=== PATIENT | male | born 1960 | race Caucasian/White ===

== ENCOUNTER 2017-11-20 07:30 | Day surgery (SDC) | payer OTHER ==
[2017-11-16 10:42] VITALS: BMI 23.7
[2017-11-20] MEDS ORDERED: LIDOCAINE HCL/PF 2% SDV 5ML VIAL ONE (07:34)
[2017-11-20] MEDS ORDERED: PROPOFOL 20 ML ONE ×2 (07:34)
[2017-11-20 08:53] VITALS: PULSE 85
[2017-11-20 09:16] VITALS: BP 107/65; TEMP 98.1
--- NOTE | 2017-11-21 16:08 | PATH ---
Surgical Pathology Report Patient Name: DUSTIN RANDOLPH [facility]. Rec. #: [id number] /Age/Gender: 1960 (Age: 57) / M Account: [id number] Location: [facility]-ENDOSCOPY Taken: 11/20/2017 Received: 11/20/2017 Reported: 11/21/2017 Physicians: Joe Ellis M.D. Specimen(s) Received A: BX CECUM B: BX RIGHT COLON C: BX TRANSVERSE COLON D: BX LEFT COLON E: BX SIGMOID F: BX DISTAL SIGMOID G: BX RECTUM Clinical History Preoperative diagnosis: Ulcerative colitis Postoperative diagnosis: Rule out dysplasia Final Diagnosis A. CECUM, BIOPSY : COLONIC MUCOSA WITH NO PATHOLOGIC FINDINGS. NEGATIVE FOR COLITIS AND DYSPLASIA. B. RIGHT COLON, BIOPSY: COLONIC MUCOSA WITH NO PATHOLOGIC FINDINGS. NEGATIVE FOR COLITIS AND DYSPLASIA. C. TRANSVERSE COLON, BIOPSY: COLONIC MUCOSA WITH NO PATHOLOGIC FINDINGS. NEGATIVE FOR COLITIS AND DYSPLASIA. D. LEFT COLON, BIOPSY: COLONIC MUCOSA WITH NO PATHOLOGIC FINDINGS. NEGATIVE FOR COLITIS AND DYSPLASIA. E. SIGMOID, BIOPSY: COLONIC MUCOSA WITH NO PATHOLOGIC FINDINGS. NEGATIVE FOR COLITIS AND DYSPLASIA. F. DISTAL SIGMOID, BIOPSY: MODERATE CHRONIC COLITIS, MILDLY ACTIVE. NEGATIVE FOR DYSPLASIA. G. RECTUM, BIOPSY: MODERATE CHRONIC ACTIVE PROCTITIS. NEGATIVE FOR DYSPLASIA. Electronically Signed Shira Nelson M.D. Gross Description A. Received in formalin, labeled "cecum" are 4 patel, irregular portions of soft tissue ranging from 0.1-0.3 cm. in greatest dimension. The specimens are submitted in toto in one cassette. B. Received in formalin, labeled "right colon" are 4 patel, irregular portions of soft tissue averaging 0.2 cm. in greatest dimension. The specimens are submitted in toto in one cassette. C. Received in formalin, labeled "transverse" are 4 patel, irregular portions of soft tissue ranging from 0.2-0.5 cm. in greatest dimension. The specimens are submitted in toto in one cassette. D. Received in formalin, labeled "left colon" are 4 patel, irregular portions of soft tissue ranging from 0.1-0.4 cm. in greatest dimension. The specimens are submitted in toto in one cassette. E. Received in formalin, labeled "sigmoid" are 4 patel, irregular portions of soft tissue ranging from 0.2-0.7 cm. in greatest dimension. The specimens are submitted in toto in one cassette. F. Received in formalin, labeled "distal sigmoid" are 4 patel, irregular portions of soft tissue ranging from 0.2-0.3 cm. in greatest dimension. The specimens are submitted in toto in one cassette. G. Received in formalin, labeled "rectum" are 2 patel, irregular portions of soft tissue measuring 0.2 and 0.3 cm. in greatest dimension. The specimens are submitted in toto in one cassette. 11/20/2017 [facility]11/20/2017
== END 2017-11-20 09:35 | disposition home or self-care (01) ==
LOC: FASU-ENDO 07:30
PROVIDERS: ATTEND Internal Medicine Gastroenterology
PROC: 0DBN8ZX Excision of Sigmoid Colon, Via Natural or Artificial Opening Endoscopic, Diagnostic (ICD-10-PCS; 2017-11-20)
PROC: 0DBP8ZX Excision of Rectum, Via Natural or Artificial Opening Endoscopic, Diagnostic (ICD-10-PCS; 2017-11-20)
PROC: 0DBM8ZX Excision of Descending Colon, Via Natural or Artificial Opening Endoscopic, Diagnostic (ICD-10-PCS; 2017-11-20)
PROC: 0DBH8ZX Excision of Cecum, Via Natural or Artificial Opening Endoscopic, Diagnostic (ICD-10-PCS; 2017-11-20)
PROC: 0DBK8ZX Excision of Ascending Colon, Via Natural or Artificial Opening Endoscopic, Diagnostic (ICD-10-PCS; principal; 2017-11-20 08:16)
PROC: 0DBL8ZX Excision of Transverse Colon, Via Natural or Artificial Opening Endoscopic, Diagnostic (ICD-10-PCS; 2017-11-20 08:16)
DX: Z09 Encounter for follow-up examination after completed treatment for conditions other than malignant neoplasm (principal); Z87.19 Personal history of other diseases of the digestive system; K57.30 Diverticulosis of large intestine without perforation or abscess without bleeding
CPT/HCPCS: 88305-TC

== ENCOUNTER 2018-11-28 11:39 | Inpatient (IN) | payer BC, OTHER ==
[2018-11-28] MEDS ORDERED: methylPREDNISolone NA SUCC 40 MG/1 ML VIAL IVPUSH ONE (11:42)
[2018-11-28] MEDS ORDERED: SODIUM CHLORIDE 1,000 ML IV STA ×2 (11:43→13:05)
[2018-11-28 11:57] VITALS: BMI 22.5
[2018-11-28] MEDS ORDERED: methylPREDNISolone NA SUCC 40 MG/1 ML VIAL ONE (12:20)
[2018-11-28 12:42] LABS: BASO % 0.1 % (0-2.0); EOS % 0.7 % (0-4.5); HEMATOCRIT 38.1 % (35.4-49); HEMOGLOBIN 12.2 GM/dl (11.7-16.9); LYMPH % 11.6 % (8-40); MCH 25.8 pg (25.7-33.7); MCHC 32.1 g/dl (32.0-35.9); MEAN CELL VOLUME 80.6 fl (80-96); MEAN PLT VOLUME 6.6 fl (7.5-11.1); MONO % 10.8 % (3.8-10.2); NEUT % 76.8 % (42.8-82.8); PLATELET COUNT 627 K/MM3 (134-434); RBC 4.73 M/mm3 (4.00-5.60); RDW 13.1 % (11.9-15.9); WHITE BLOOD COUNT 12.6 K/mm3 (4.0-10.8)
[2018-11-28 13:00] LABS: MAGNESIUM 1.8 mg/dL (1.8-2.4)
[2018-11-28 13:03] LABS: ALBUMIN 2.6 g/dl (3.5-5.0); ALK PHOS 81 U/L (32-92); ANION GAP 11 MMOL/L (8-16); BILIRUBIN,TOTAL 0.9 mg/dl (0.2-1.0); BLOOD UREA NITROGEN 18 mg/dl (7-18); CALCIUM 8.7 mg/dl (8.4-10.2); CHLORIDE 97 mmol/L (98-107); CO2 26 mmol/L (22-28); CREATININE 1.4 mg/dl (0.6-1.3); GLUCOSE,RANDOM 97 mg/dl (74-106); POTASSIUM 3.3 mmol/L (3.5-5.1); SGOT/AST 21 U/L (10-42); SGPT/ALT 30 U/L (10-40); SODIUM 134 mmol/L (136-145); TOT PROT 6.2 g/dl (6.4-8.3)
[2018-11-28 13:04] LABS: INR 1.31 (0.82-1.09); PROTHROMBIN TIME (PATIENT) 14.6 SEC (10.2-13.0)
[2018-11-28] MEDS ORDERED: ACETAMINOPHEN 1000 MG/100 ML VIAL (NON FORMULARY) IVPB ONE (13:07)
[2018-11-28] MEDS ORDERED: ACETAMINOPHEN INJECTION 100 ML IVPB ONE (13:10)
--- NOTE | 2018-11-28 14:27 | PDOC ---
History of Present Illness - General Chief Complaint: Diarrhea Stated Complaint: SENT FOR ADMISSION FOR COLITIS Time Seen by Provider: 11/28/18 11:41 - History of Present Illness Initial Comments: 11/28/18 15:01 58-year-old male with a history of ulcerative colitis, hypertension presents emergency department for admission from Dr. Ellis's office. Patient has had an ulcerative colitis flare for 2 weeks that has not improved on a prednisone taper. Patient reports 2 weeks of left lower quadrant pain and 4-5 episodes of diarrhea per day. Patient reports bright red blood in the stools intermittently , but states over the last 2 days the stools have been mostly light brown. Patient has not had an ulcerative colitis flare and 15 years. He reports when he hasn't the past, he is always had pain only in the left lower quadrant. He denies any fevers, nausea or vomiting. He denies any chest pain or shortness of breath. He denies any focal weakness or numbness. PMD: Dr. Muñiz Past History - Past Medical History Allergies/Adverse Reactions: Allergies Allergy/AdvReac Type Severity Reaction Status Date / Time Penicillins Allergy Intermediate Rash Verified 11/28/18 11:48 erythromycin base Allergy Verified 11/28/18 11:48 streptomycin Allergy Verified 11/28/18 11:51 MYCINS Allergy Intermediate Hives Uncoded 11/28/18 11:48 PENICILLIN Allergy Intermediate Hives Uncoded 11/20/17 06:37 Home Medications: Ambulatory Orders Mesalamine [Delzicol] 800 mg PO BID 07/16/15 Lisinopril/Hydrochlorothiazide [Lisinopril-Hctz 10-12.5 mg Tab] 1 each PO DAILY 11/20/17 Prednisone [Deltasone] 20 mg PO DAILY 11/28/18 Anemia: No Asthma: No Cancer: No Cardiac Disorders: No CVA: No COPD: No CHF: No Dementia: No Diabetes: No GI Disorders: Yes (ULCERATIVE COLITIS) Disorders: No HTN: Yes Hypercholesterolemia: Yes Liver Disease: No Seizures: No Thyroid Disease: No - Surgical History Abdominal Surgery: Yes (UMBILICAL HERNIA REPAIR) Appendectomy: No Cardiac Surgery: No Cholecystectomy: No Lung Surgery: No Neurologic Surgery: No Orthopedic Surgery: No - Suicide/Smoking/Psychosocial Hx Smoking History: Never smoked Have you smoked in the past 12 months: No Number of Cigarettes Smoked Daily: 0 If you are a former smoker, when did you quit?: 1998 Information on smoking cessation initiated: No Hx Alcohol Use: Yes (SOCIAL) Drug/Substance Use Hx: Yes (OCCASSIONAL MARIJUANA) Substance Use Type: Alcohol, Marijuana Hx Substance Use Treatment: No Review of Systems - Review of Systems Comments:: 11/28/18 15:03 GENERAL/CONSTITUTIONAL: No fever or chills. No weakness. HEAD, EYES, EARS, NOSE AND THROAT: No change in vision. No ear pain or discharge. No sore throat. GASTROINTESTINAL: No nausea, vomiting, +bloody diarrhea, +LLQ abd pain GENITOURINARY: No dysuria, frequency, or change in urination. CARDIOVASCULAR: No chest pain or shortness of breath. RESPIRATORY: No cough, wheezing, or hemoptysis. MUSCULOSKELETAL: No joint or muscle swelling or pain. No neck or back pain. SKIN: No rash NEUROLOGIC: No headache, vertigo, loss of consciousness, or change in strength/ sensation. ENDOCRINE: No increased thirst. No abnormal weight change. HEMATOLOGIC/LYMPHATIC: No anemia, easy bleeding, or history of blood clots. ALLERGIC/IMMUNOLOGIC: No hives or skin allergy. *Physical Exam - Vital Signs Last Vital Signs Temp Pulse Resp BP Pulse Ox 97.2 F L 64 16 101/64 98 11/28/18 11:41 11/28/18 13:38 11/28/18 13:38 11/28/18 13:38 11/28/18 13:38 - Physical Exam Comments: 11/28/18 15:05 GENERAL: Awake, alert, and fully oriented, in no acute distress EYES: PERRLA, EOMI, sclera anicteric, conjunctiva clear ENT: Auricles normal inspection, hearing grossly normal, nares patent, oropharynx clear without exudates. dry MM NECK: Normal ROM, supple, no lymphadenopathy, JVD, or masses LUNGS: Breath sounds equal, clear to auscultation bilaterally. No wheezes, and no crackles HEART: Regular rate and rhythm, normal S1 and S2, no murmurs, rubs or gallops ABDOMEN: Soft, +LLQ ttp, hyperactive bowel sounds. No guarding, no rebound. No masses EXTREMITIES: Normal range of motion, no edema. No cords, erythema, or tenderness NEUROLOGICAL: Normal speech, cranial nerves intact, equal strength and sensation b/l SKIN: Warm, Dry, normal turgor, no rashes or lesions noted. Moderate Sedation - Procedure Monitoring Vital Signs: Procedure Monitoring Vital Signs Temperature 97.2 F L 11/28/18 11:41 Pulse Rate 64 11/28/18 13:38 Respiratory Rate 16 11/28/18 13:38 Blood Pressure 101/64 11/28/18 13:38 O2 Sat by Pulse Oximetry (%) 98 11/28/18 13:38 Heart Score/ECG Review #1 11/28/18 15:06 Twelve-lead EKG was performed and reviewed by me. Sinus tachycardia, rate 103. Normal axis. No ST elevations or T-wave inversions. ED Treatment Course - LABORATORY CBC & Chemistry Diagram: 11/28/18 12:15 11/28/18 12:16 - ADDITIONAL ORDERS Additional order review: Laboratory Results 11/28/18 11/28/18 11/28/18 12:16 12:15 12:15 PT with INR 14.6 H INR 1.31 H PTT (Actin FS) 29.0 Sodium 134 L Potassium 3.3 L D Chloride 97 L Carbon Dioxide 26 Anion Gap 11 BUN 18 Creatinine 1.4 H Creat Clearance w eGFR 52.05 Random Glucose 97 Calcium 8.7 Magnesium 1.8 Total Bilirubin 0.9 AST 21 ALT 30 Alkaline Phosphatase 81 Total Protein 6.2 L Albumin 2.6 L Lipase 278 11/28/18 12:15 RBC 4.73 MCV 80.6 MCHC 32.1 RDW 13.1 MPV 6.6 L D Neutrophils % 76.8 Lymphocytes % 11.6 D Monocytes % 10.8 H Eosinophils % 0.7 Basophils % 0.1 - RADIOLOGY Radiology Studies Ordered: Category Date Time Status ABDOMEN & PELVIS CT WITH CONTR [CT] Stat CT Scan 11/28/18 13:27 Completed - Medications Given in the ED: ED Medications Discontinued Medications Generic Name Dose Route Start Last Admin Trade Name Freq PRN Reason Stop Dose Admin Acetaminophen 1,000 mg 11/28/18 13:07 11/28/18 13:13 Ofirmev Injection - IVPB 11/28/18 13:08 1,000 mg ONCE ONE Administration Sodium Chloride 1,000 mls @ 1,000 mls/hr 11/28/18 11:43 11/28/18 12:18 Normal Saline - IV 11/28/18 12:42 1,000 mls/hr ASDIR STA Administration Sodium Chloride 1,000 mls @ 1,000 mls/hr 11/28/18 13:05 11/28/18 13:09 Normal Saline - IV 11/28/18 14:04 1,000 mls/hr ASDIR STA Administration Methylprednisolone Sodium Succinate 40 mg 11/28/18 11:42 11/28/18 12:22 Solu-Medrol - IVPUSH 11/28/18 11:43 40 mg ONCE ONE Administration Medical Decision Making - Medical Decision Making 11/28/18 15:07 58yo M presents to the ED with persistent UC flare despite outpt prednisone taper. Vitals with mild tachycardia to 103 and BP of 90s/60s likely due to dehydration from GI losses. On exam, pt with dry MM and ttp in LLQ. Labs with leukocytosis to 13. Creatinine also elevated to 1.4 consistent with dehydration. Pt is now s/p 2L NS with BP improvement to 106/70 CTAP performed to r/o diverticulitis, reveals only sigmoid colitis consistent with UC Per Dr. Ellis, all outpt stool studies including c.diff negative Pt given methylpred 40mg IV per Dr. Ellis, awaiting call from hospitalist for admission. 11/28/18 15:38 Case discussed with VALARIE Gaitan Pt accepted for admssion to Dr. Stuart Case discussed in detail with admitting physician including history, physical exam and ancillary studies. Admitting physician has assumed care for the patient, will follow all pending diagnostics and will complete the evaluation and treatment. *DC/Admit/Observation/Transfer Diagnosis at time of Disposition: Ulcerative colitis, Abdominal pain, Bloody diarrhea - Discharge Dispostion Condition at time of disposition: Stable Decision to Admit order: Yes - Referrals Referrals: Joe Ellis MD [Primary Care Provider] - - Patient Instructions - Post Discharge Activity - Attestations Physician Attestion: 11/28/18 15:40 I, Dr. Maryjane Hilton MD, attest that this document has been prepared under my direction and personally reviewed by me in its entirety. I further attest, that it accurately reflects all work, treatment, procedures and medical decision -making performed by me.
--- NOTE | 2018-11-28 15:39 | HP ---
CHIEF COMPLAINT: Bloody diarrhea, LLQ pain PCP: Dr. Joe Ellis HISTORY OF PRESENT ILLNESS: 58 year-old male with a PMH significant for HTN and ulcerative colitis who was referred to the ED by Dr. Ellis for an ulcerative colitis flare. Patient has been experienicng LLQ pain and 4-5 episodes of diarrhea daily x 2 weeks. A course of oral prednisone did not provide relief. Patient reports bright red blood in the stools intermittently, but over the last 2 days the stools have been mostly light brown. Patient has not had an ulcerative colitis flare in 15 years. He has had night sweats for the past 4 nights. ER course was notable for: (1) WBC 12.6 (2) K 3.3 Recent Travel: No PAST MEDICAL HISTORY: Hypertension Ulcerative colitis PAST SURGICAL HISTORY: Abdominal hernia repair Social History: works as materials tech at [employer]; , lives with spouse and children Smoking: quit 1998 Alcohol: social Drugs: occasional marijuana Family History: Allergies Penicillins Allergy (Intermediate, Verified 11/28/18 11:48) Rash hives erythromycin base Allergy (Verified 11/28/18 11:48) hives streptomycin Allergy (Verified 11/28/18 11:51) MYCINS Allergy (Intermediate, Uncoded 11/28/18 11:48) Hives Erthyromycin and streptomycin PENICILLIN Allergy (Intermediate, Uncoded 11/20/17 06:37) Hives HOME MEDICATIONS: Home Medications Medication Instructions Recorded Mesalamine [Delzicol] 800 mg PO BID 07/16/15 Lisinopril/Hydrochlorothiazide 1 each PO DAILY 11/20/17 [Lisinopril-Hctz 10-12.5 mg Tab] Prednisone [Deltasone] 20 mg PO DAILY 11/28/18 REVIEW OF SYSTEMS CONSTITUTIONAL: +sweats Absent: fever, chills, diaphoresis, generalized weakness, malaise, loss of appetite, weight change HEENT: Absent: rhinorrhea, nasal congestion, throat pain, throat swelling, difficulty swallowing, mouth swelling, ear pain, eye pain, visual changes CARDIOVASCULAR: Absent: chest pain, syncope, palpitations, irregular heart rate, lightheadedness , peripheral edema RESPIRATORY: Absent: cough, shortness of breath, dyspnea with exertion, orthopnea, wheezing, stridor, hemoptysis GASTROINTESTINAL: +LLQ pain, bloody diarrhea Absent: abdominal pain, abdominal distension, nausea, vomiting, diarrhea, constipation, melena, hematochezia GENITOURINARY: Absent: dysuria, frequency, urgency, hesitancy, hematuria, flank pain, genital pain MUSCULOSKELETAL: Absent: myalgia, arthralgia, joint swelling, back pain, neck pain SKIN: Absent: rash, itching, pallor HEMATOLOGIC/IMMUNOLOGIC: Absent: easy bleeding, easy bruising, lymphadenopathy, frequent infections ENDOCRINE: Absent: unexplained weight gain, unexplained weight loss, heat intolerance, cold intolerance NEUROLOGIC: Absent: headache, focal weakness or paresthesias, dizziness, unsteady gait, seizure, mental status changes, bladder or bowel incontinence PSYCHIATRIC: Absent: anxiety, depression, suicidal or homicidal ideation, hallucinations. PHYSICAL EXAMINATION Vital Signs - 24 hr 11/28/18 11/28/18 11/28/18 11:41 12:59 13:38 Temperature 97.2 F L Pulse Rate 106 H Pulse Rate [ 99 H 64 Left] Respiratory 16 16 16 Rate Blood Pressure 94/58 L Blood Pressure 97/64 101/64 [Right Arm] O2 Sat by Pulse 98 99 98 Oximetry (%) GENERAL: Awake, alert, and fully oriented, in no acute distress. LUNGS: Breath sounds equal, clear to auscultation bilaterally. No wheezes, and no crackles. No accessory muscle use. HEART: Regular rate and rhythm, normal S1 and S2 ABDOMEN: Soft, mild LLQ tenderness UPPER EXTREMITIES: 2+ pulses, warm, well-perfused. No cyanosis. No clubbing. No peripheral edema. LOWER EXTREMITIES: 2+ pulses, warm, well-perfused. No calf tenderness. No peripheral edema. NEUROLOGICAL: Cranial nerves II-XII intact. Normal speech. Laboratory Results - last 24 hr 11/28/18 11/28/18 11/28/18 12:15 12:15 12:15 WBC 12.6 H RBC 4.73 Hgb 12.2 Hct 38.1 MCV 80.6 MCH 25.8 MCHC 32.1 RDW 13.1 Plt Count 627 H D MPV 6.6 L D Absolute Neuts (auto) 9.6 Neutrophils % 76.8 Lymphocytes % 11.6 D Monocytes % 10.8 H Eosinophils % 0.7 Basophils % 0.1 PT with INR 14.6 H INR 1.31 H PTT (Actin FS) 29.0 Sodium Potassium Chloride Carbon Dioxide Anion Gap BUN Creatinine Creat Clearance w eGFR Random Glucose Calcium Magnesium 1.8 Total Bilirubin AST ALT Alkaline Phosphatase Total Protein Albumin Lipase 278 Blood Type Antibody Screen 11/28/18 11/28/18 11/28/18 12:15 12:16 12:24 WBC RBC Hgb Hct MCV MCH MCHC RDW Plt Count MPV Absolute Neuts (auto) Neutrophils % Lymphocytes % Monocytes % Eosinophils % Basophils % PT with INR INR PTT (Actin FS) Sodium 134 L Potassium 3.3 L D Chloride 97 L Carbon Dioxide 26 Anion Gap 11 BUN 18 Creatinine 1.4 H Creat Clearance w eGFR 52.05 Random Glucose 97 Calcium 8.7 Magnesium Total Bilirubin 0.9 AST 21 ALT 30 Alkaline Phosphatase 81 Total Protein 6.2 L Albumin 2.6 L Lipase Blood Type A POSITIVE A POSITIVE Antibody Screen Negative ASSESSMENT/PLAN 58 year-old male with a PMH significant for HTN, HLD, ulcerative colitis, admitted for ulcerative colitis flare requiring IV steroids. Ulcerative colitis flare --11/28: CTAP w/IV contrast: thickening of sigmoid suggesting colitis; mesenteric stranding; no drainable fluid collections, free air, or free fluid --per Dr. Ellis, recent WBC 18k, stool cultures negative including C.diff; WBC on this admission 12.6k, afebrile but subjective fever/sweats for past 4 days --start empiric levofloxacin and metronidazole --solumedrol 40mg q8h --NS @ 125mL/hr --Tylenol, Ultram PRN for pain --daily labs --GI following Hypertension --BP borderline low, hold lisinopril and HCTZ Hyperlipidemia --not on statin therapy FEN Fluids: NS @ 125mL/hr Electrolytes: replete as indicated Nutrition: clears DVT prophylaxis: avoid chemical prophylaxis due to bloody diarrhea; SCDs, oob, ambulation Dispo: continues to require inpatient care. Full code. Visit type - Emergency Visit Emergency Visit: Yes ED Registration Date: 11/28/18 Care time: The patient presented to the Emergency Department on the above date and was hospitalized for further evaluation of their emergent condition. - New Patient This patient is new to me today: Yes Date on this admission: 11/29/18 - Critical Care Critical Care patient: No
[2018-11-28 15:43] LABS: URINE APPEARANCE Clear; URINE BILIRUBIN Negative (NEGATIVE); URINE COLOR Yellow; URINE GLUCOSE (UA) Negative (NEGATIVE); URINE KETONE Negative (NEGATIVE); URINE LEUK ESTERASE Negative (NEGATIVE); URINE NITRITE Negative (NEGATIVE); URINE PROTEIN Negative (NEGATIVE); URINE UROBILINOGEN 0.2 (0.2-1.0)
[2018-11-28] MEDS ORDERED: SODIUM CHLORIDE 1,000 ML IV SCH (16:15)
--- NOTE | 2018-11-28 17:06 | PN ---
Progress Note (short form) - Note Progress Note: Patient is a 58 yo male well known to me with hx of UC in clinical remission On Lialda) until approx 3 weeks ago when developed diarrhea with some blood and loose stool. Labs notable for leukocytosis (WBC 18K) and stool cultures negative including C diff toxin. Patient treated with Prednisone at 40mg dose daily with instructions for tapering if doing well and office followup in 1-2 weeks but tapered himself to 20mg daily in spite of no improvement and presented today in the office feeling ill. Sent to [facility] for admission. Results of CT scan and labs reviewed and patient on IV steroids. Will continue current Rx and clear liquids PO as tolerated. WBC 12-13K (improved ) and hopefully will be able to switch to PO steroids in 1-2 days.
[2018-11-28] MEDS ORDERED: morphine CARPU-JECT 2 MG/1 ML DISP.SYRIN IVPUSH ONE (19:58)
[2018-11-28] MEDS: methylPREDNISolone NA SUCC 40 MG/1 ML VIAL IVPUSH SCH (20:28)
[2018-11-28] MEDS: HEPARIN NA (PORCINE) 5,000 UNITS/ML 1ML VIAL SQ SCH (21:45)
[2018-11-29] MEDS ORDERED: morphine CARPU-JECT 2 MG/1 ML DISP.SYRIN IVPB ONE (00:18)
[2018-11-29] MEDS: methylPREDNISolone NA SUCC 40 MG/1 ML VIAL IVPUSH SCH ×3 (03:03→21:28)
[2018-11-29] MEDS: HEPARIN NA (PORCINE) 5,000 UNITS/ML 1ML VIAL SQ SCH ×2 (06:46→13:31)
[2018-11-29 08:06] LABS: EOS % 0.1 % (0-4.5); HEMATOCRIT 30.5 % (35.4-49); HEMOGLOBIN 9.8 GM/dl (11.7-16.9); LYMPH % 6.9 % (8-40); MCH 25.8 pg (25.7-33.7); MEAN CELL VOLUME 80.8 fl (80-96); MEAN PLT VOLUME 6.6 fl (7.5-11.1); MONO % 4.1 % (3.8-10.2); NEUT % 88.9 % (42.8-82.8); PLATELET COUNT 388 K/MM3 (134-434); RBC 3.78 M/mm3 (4.00-5.60); RDW 13.2 % (11.9-15.9); WHITE BLOOD COUNT 6.9 K/mm3 (4.0-10.8)
[2018-11-29 08:20] LABS: ALK PHOS 58 U/L (32-92); ANION GAP 5 MMOL/L (8-16); BILIRUBIN,TOTAL 0.4 mg/dl (0.2-1.0); BLOOD UREA NITROGEN 16 mg/dl (7-18); CALCIUM 7.6 mg/dl (8.4-10.2); CHLORIDE 104 mmol/L (98-107); CO2 24 mmol/L (22-28); CREATININE 0.7 mg/dl (0.6-1.3); GLUCOSE,RANDOM 117 mg/dl (74-106); MAGNESIUM 1.8 mg/dL (1.8-2.4); POTASSIUM 3.9 mmol/L (3.5-5.1); SGOT/AST 13 U/L (10-42); SGPT/ALT 20 U/L (10-40); SODIUM 133 mmol/L (136-145); TOT PROT 4.9 g/dl (6.4-8.3)
[2018-11-29] MEDS ORDERED: ACETAMINOPHEN 1000 MG/100 ML VIAL (NON FORMULARY) IVPB PRN (09:34)
--- NOTE | 2018-11-29 09:55 | PN ---
Progress Note (short form) - Note Progress Note: Patient on IV steroids and Flagyl. Feels much better today with no fever, decrease in BMs and less abdominal pain (although still says pain is 6/10). Labs notable for drop in WBC to 6-7K VSS Afebrile Lungs clear Cardiac RRR Abdomen soft flat +BS mild LLQ tenderness (less than previous) Clinically improved. Would begin on clear liquid diet Continue current meds and follow abdominal exam, labs Stool cultures negative from last week with new set pending If continues to improve, would consider switching to PO Prednisone 60mg tomorrow (can give 30mg bid) and PO flagyl. prn Tramadol; for pain
--- NOTE | 2018-11-29 11:40 | PN ---
Physical Exam: SUBJECTIVE: Patient seen and examined OBJECTIVE: Vital Signs Period Temp Pulse Resp BP Sys/Garcia Pulse Ox Last 24 Hr 97.2 F-98.5 F 64-106 16-18 94-114/58-66 95-99 GENERAL: Awake, alert, and fully oriented, in no acute distress. LUNGS: Breath sounds equal, clear to auscultation bilaterally. No wheezes, and no crackles. No accessory muscle use. HEART: Regular rate and rhythm, normal S1 and S2 ABDOMEN: Soft, mild LLQ tenderness UPPER EXTREMITIES: 2+ pulses, warm, well-perfused. No cyanosis. No clubbing. No peripheral edema. LOWER EXTREMITIES: 2+ pulses, warm, well-perfused. No calf tenderness. No peripheral edema. NEUROLOGICAL: Cranial nerves II-XII intact. Normal speech. Laboratory Results - last 24 hr 11/28/18 11/28/18 11/28/18 12:15 12:15 12:15 WBC 12.6 H RBC 4.73 Hgb 12.2 Hct 38.1 MCV 80.6 MCH 25.8 MCHC 32.1 RDW 13.1 Plt Count 627 H D MPV 6.6 L D Absolute Neuts (auto) 9.6 Neutrophils % 76.8 Lymphocytes % 11.6 D Monocytes % 10.8 H Eosinophils % 0.7 Basophils % 0.1 PT with INR 14.6 H INR 1.31 H PTT (Actin FS) 29.0 Sodium Potassium Chloride Carbon Dioxide Anion Gap BUN Creatinine Creat Clearance w eGFR Random Glucose Calcium Magnesium 1.8 Total Bilirubin AST ALT Alkaline Phosphatase Total Protein Albumin Lipase 278 Urine Color Urine Appearance Urine pH Ur Specific [place] Urine Protein Urine Glucose (UA) Urine Ketones Urine Blood Urine Nitrite Urine Bilirubin Urine Urobilinogen Ur Leukocyte Esterase Blood Type Antibody Screen 11/28/18 11/28/18 11/28/18 12:15 12:16 12:24 WBC RBC Hgb Hct MCV MCH MCHC RDW Plt Count MPV Absolute Neuts (auto) Neutrophils % Lymphocytes % Monocytes % Eosinophils % Basophils % PT with INR INR PTT (Actin FS) Sodium 134 L Potassium 3.3 L D Chloride 97 L Carbon Dioxide 26 Anion Gap 11 BUN 18 Creatinine 1.4 H Creat Clearance w eGFR 52.05 Random Glucose 97 Calcium 8.7 Magnesium Total Bilirubin 0.9 AST 21 ALT 30 Alkaline Phosphatase 81 Total Protein 6.2 L Albumin 2.6 L Lipase Urine Color Urine Appearance Urine pH Ur Specific [place] Urine Protein Urine Glucose (UA) Urine Ketones Urine Blood Urine Nitrite Urine Bilirubin Urine Urobilinogen Ur Leukocyte Esterase Blood Type A POSITIVE A POSITIVE Antibody Screen Negative 11/28/18 11/29/18 11/29/18 15:30 07:20 07:20 WBC 6.9 RBC 3.78 L Hgb 9.8 L Hct 30.5 L D MCV 80.8 MCH 25.8 MCHC 32.0 RDW 13.2 Plt Count 388 D MPV 6.6 L Absolute Neuts (auto) 6.1 Neutrophils % 88.9 H Lymphocytes % 6.9 L D Monocytes % 4.1 Eosinophils % 0.1 D Basophils % 0.0 PT with INR INR PTT (Actin FS) Sodium 133 L Potassium 3.9 Chloride 104 Carbon Dioxide 24 Anion Gap 5 L BUN 16 Creatinine 0.7 Creat Clearance w eGFR > 60 Random Glucose 117 H D Calcium 7.6 L Magnesium 1.8 Total Bilirubin 0.4 AST 13 D ALT 20 D Alkaline Phosphatase 58 D Total Protein 4.9 L Albumin 2.0 L Lipase Urine Color Yellow Urine Appearance Clear Urine pH 6.0 Ur Specific [place] 1.010 Urine Protein Negative Urine Glucose (UA) Negative Urine Ketones Negative Urine Blood Negative Urine Nitrite Negative Urine Bilirubin Negative Urine Urobilinogen 0.2 Ur Leukocyte Esterase Negative Blood Type Antibody Screen Active Medications Generic Name Dose Route Start Last Admin Trade Name Freq PRN Reason Stop Dose Admin Acetaminophen 1,000 mg 11/29/18 09:34 Ofirmev Injection - IVPB Q6H PRN PAIN LEVEL 1-5 Heparin Sodium (Porcine) 5,000 unit 11/28/18 22:00 11/29/18 06:46 Heparin - SQ 5,000 unit TID AVTAR Administration Sodium Chloride 1,000 mls @ 125 mls/hr 11/28/18 16:15 11/28/18 20:28 Normal Saline - IV 125 mls/hr ASDIR AVTAR Administration Metronidazole 500 mg in 100 mls @ 100 mls/hr 11/28/18 18:15 11/29/18 10:55 Flagyl 500mg Premixed Ivpb - IVPB 100 mls/hr Q8H-IV AVTAR Administration Levofloxacin 500 mg in 100 mls @ 100 mls/hr 11/29/18 10:00 11/29/18 10:55 Levaquin 500 Mg Premixed Ivpb - IVPB 100 mls/hr DAILY AVTAR Administration Protocol Methylprednisolone Sodium Succinate 40 mg 11/28/18 20:00 11/29/18 03:03 Solu-Medrol - IVPUSH 40 mg Q8H AVTAR Administration Tramadol HCl 50 mg 11/29/18 09:33 Ultram - PO Q6H PRN PAIN LEVEL 6-10 Imaging 11/28: CTAP w/IV contrast: thickening of sigmoid suggesting colitis; mesenteric stranding; no drainable fluid collections, free air, or free fluid ASSESSMENT/PLAN 58 year-old male with a PMH significant for HTN, HLD, ulcerative colitis, admitted for ulcerative colitis flare requiring IV steroids. Ulcerative colitis flare --feeling better, one small bloody diarrheal movement today, first one since admission --afebrile, leukocytosis resolved; continue empiric levofloxacin and metronidazole --continue solumedrol 40mg q8h; tomorrow switch to 60mg daily and taper --continue IV fluids --Tylenol, Ultram PRN for pain --Hgb 9.8, daily h/h --GI following Hypertension --restart home lisinopril 10mg daily --hold HCTZ Hyperlipidemia --not on statin therapy FEN Fluids: PO intake adequate Electrolytes: replete as indicated Nutrition: clears DVT prophylaxis: avoid chemical prophylaxis due to bloody diarrhea; SCDs, oob, ambulation Dispo: continues to require inpatient care. Full code. Visit type - Emergency Visit Emergency Visit: Yes ED Registration Date: 11/28/18 Care time: The patient presented to the Emergency Department on the above date and was hospitalized for further evaluation of their emergent condition. - New Patient This patient is new to me today: No - Critical Care Critical Care patient: No
--- NOTE | 2018-11-29 11:58 | EKG ---
Test Reason : Blood Pressure : / mmHG Vent. Rate : 103 BPM Atrial Rate : 103 BPM P-R Int : 148 ms QRS Dur : 092 ms QT Int : 338 ms P-R-T Axes : 054 043 064 degrees QTc Int : 442 ms SINUS TACHYCARDIA OTHERWISE NORMAL ECG WHEN COMPARED WITH ECG OF 18-MAR-2006 15:39, NO SIGNIFICANT CHANGE WAS FOUND Confirmed by MARY WOODY MD ([id number]) on 11/29/2018 11:58:30 AM Referred By: Gabriella Dobbins Confirmed By:MARY WOODY MD
[2018-11-29] MEDS: traMADol HCL 50 MG TABLET PO PRN (16:37)
[2018-11-29] MEDS ORDERED: SODIUM CHLORIDE 1,000 ML IV SCH (16:46)
[2018-11-29] MEDS: LISINOPRIL 10 MG TABLET (FP) PO SCH (17:55)
[2018-11-30] MEDS: traMADol HCL 50 MG TABLET PO PRN ×3 (00:19→21:32)
[2018-11-30] MEDS: methylPREDNISolone NA SUCC 40 MG/1 ML VIAL IVPUSH SCH ×2 (04:00→12:40)
[2018-11-30 08:15] LABS: EOS % 0.1 % (0-4.5); HEMATOCRIT 29.8 % (35.4-49); HEMOGLOBIN 10.1 GM/dl (11.7-16.9); LYMPH % 4.4 % (8-40); MCH 27.2 pg (25.7-33.7); MCHC 33.7 g/dl (32.0-35.9); MEAN CELL VOLUME 80.6 fl (80-96); MEAN PLT VOLUME 6.4 fl (7.5-11.1); MONO % 10.4 % (3.8-10.2); NEUT % 85.1 % (42.8-82.8); PLATELET COUNT 406 K/MM3 (134-434); RDW 13.1 % (11.9-15.9); WHITE BLOOD COUNT 8.2 K/mm3 (4.0-10.8)
[2018-11-30 09:49] LABS: ALBUMIN 2.1 g/dl (3.5-5.0); ALK PHOS 62 U/L (32-92); ANION GAP 5 MMOL/L (8-16); BILIRUBIN,TOTAL 0.4 mg/dl (0.2-1.0); BLOOD UREA NITROGEN 17 mg/dl (7-18); CALCIUM 7.9 mg/dl (8.4-10.2); CHLORIDE 102 mmol/L (98-107); CO2 24 mmol/L (22-28); CREATININE 0.7 mg/dl (0.6-1.3); GLUCOSE,RANDOM 133 mg/dl (74-106); MAGNESIUM 2.1 mg/dL (1.8-2.4); POTASSIUM 4.1 mmol/L (3.5-5.1); SGOT/AST 12 U/L (10-42); SGPT/ALT 17 U/L (10-40); SODIUM 131 mmol/L (136-145); TOT PROT 4.9 g/dl (6.4-8.3)
[2018-11-30] MEDS: LISINOPRIL 10 MG TABLET (FP) PO SCH (10:23)
--- NOTE | 2018-11-30 11:55 | PN ---
Physical Exam: SUBJECTIVE: Patient seen and examined. Three diarrheal movements with some blood over the past 24 hours. Tolerating fluids. Pain almost completely resolved. OBJECTIVE: Vital Signs Period Temp Pulse Resp BP Sys/Garcia Pulse Ox Last 24 Hr 97.6 F-98.6 F 75-100 18-18 113-133/74-82 94-97 GENERAL: Awake, alert, and fully oriented, in no acute distress. LUNGS: Breath sounds equal, clear to auscultation bilaterally. No wheezes, and no crackles. No accessory muscle use. HEART: Regular rate and rhythm, normal S1 and S2 ABDOMEN: Soft, not tender, not distended UPPER EXTREMITIES: 2+ pulses, warm, well-perfused. No cyanosis. No clubbing. No peripheral edema. LOWER EXTREMITIES: 2+ pulses, warm, well-perfused. No calf tenderness. No peripheral edema. NEUROLOGICAL: Cranial nerves II-XII intact. Normal speech. Laboratory Results - last 24 hr 11/30/18 11/30/18 07:30 07:30 WBC 8.2 RBC 3.70 L Hgb 10.1 L Hct 29.8 L MCV 80.6 MCH 27.2 MCHC 33.7 RDW 13.1 Plt Count 406 MPV 6.4 L Absolute Neuts (auto) 6.9 Neutrophils % 85.1 H Lymphocytes % 4.4 L D Monocytes % 10.4 H D Eosinophils % 0.1 Basophils % 0.0 Sodium 131 L Potassium 4.1 Chloride 102 Carbon Dioxide 24 Anion Gap 5 L BUN 17 Creatinine 0.7 Creat Clearance w eGFR > 60 Random Glucose 133 H Calcium 7.9 L Magnesium 2.1 Total Bilirubin 0.4 AST 12 ALT 17 Alkaline Phosphatase 62 Total Protein 4.9 L Albumin 2.1 L Active Medications Generic Name Dose Route Start Last Admin Trade Name Freq PRN Reason Stop Dose Admin Acetaminophen 1,000 mg 11/29/18 09:34 11/29/18 21:28 Ofirmev Injection - IVPB 1,000 mg Q6H PRN Administration PAIN LEVEL 1-5 Metronidazole 500 mg in 100 mls @ 100 mls/hr 11/28/18 18:15 11/30/18 10:23 Flagyl 500mg Premixed Ivpb - IVPB 100 mls/hr Q8H-IV AVTAR Administration Levofloxacin 500 mg in 100 mls @ 100 mls/hr 11/29/18 10:00 11/30/18 10:23 Levaquin 500 Mg Premixed Ivpb - IVPB 100 mls/hr DAILY AVTAR Administration Protocol Lisinopril 10 mg 11/29/18 16:45 11/30/18 10:23 Prinivil PO 10 mg DAILY AVTAR Administration Methylprednisolone Sodium Succinate 40 mg 11/28/18 20:00 11/30/18 04:00 Solu-Medrol - IVPUSH 40 mg Q8H AVTAR Administration Tramadol HCl 50 mg 11/29/18 09:33 11/30/18 07:43 Ultram - PO 50 mg Q6H PRN Administration PAIN LEVEL 6-10 Imaging 11/28: CTAP w/IV contrast: thickening of sigmoid suggesting colitis; mesenteric stranding; no drainable fluid collections, free air, or free fluid ASSESSMENT/PLAN 58 year-old male with a PMH significant for HTN, HLD, ulcerative colitis, admitted for ulcerative colitis flare requiring IV steroids. Ulcerative colitis flare --feeling better, pain has resolved --afebrile, leukocytosis resolved; observe off antibiotics --tapering steroids --Tylenol, Ultram PRN for pain --h/h stable --GI following Hypertension --continue lisinopril --restart HCTZ Hyperlipidemia --not on statin therapy Hyponatremia --stop IV fluids FEN Fluids: PO intake adequate Electrolytes: replete as indicated Nutrition: full liquids DVT prophylaxis: avoid chemical prophylaxis due to bloody diarrhea; SCDs, oob, ambulation Dispo: continues to require inpatient care. Full code. Visit type - Emergency Visit Emergency Visit: Yes ED Registration Date: 11/28/18 Care time: The patient presented to the Emergency Department on the above date and was hospitalized for further evaluation of their emergent condition. - New Patient This patient is new to me today: No - Critical Care Critical Care patient: No
--- NOTE | 2018-11-30 14:29 | PN ---
Progress Note (short form) - Note Progress Note: Patient feels better. Remains afebrile and no longer has LLQ pain. Passing some stool with small amount of heme. WBC=8.2 Abdomen mildly distended +BS nontender BC negative to date Tolerating PO liquids. Rec: change to PO Prednisone (60mg/day) and stop Flagyl advance to full liquids or soft diet discharge in am if stable and will see in office on Monday
[2018-11-30] MEDS: HYDROCHLOROTHIAZIDE 12.5 MG CAPSULE (FP) PO SCH (16:06)
[2018-12-01] MEDS: traMADol HCL 50 MG TABLET PO PRN ×2 (05:13→11:50)
[2018-12-01 06:55] VITALS: TEMP 97.9
--- NOTE | 2018-12-01 09:43 | DS ---
Physical Exam: SUBJECTIVE: Patient seen and examined OBJECTIVE: Vital Signs Period Temp Pulse Resp BP Sys/Garcia Pulse Ox Last 24 Hr 97.9 F-98.6 F 71-86 16-18 117-122/77-80 94-97 PHYSICAL EXAM GENERAL: The patient is awake, alert, and fully oriented, in no acute distress. HEAD: Normal with no signs of trauma. EYES: PERRL, extraocular movements intact, sclera anicteric, conjunctiva clear. ENT: Ears normal, nares patent, oropharynx clear without exudates, moist mucous membranes. NECK: Trachea midline, full range of motion, supple. LUNGS: Breath sounds equal, clear to auscultation bilaterally, no wheezes, no crackles, no accessory muscle use. HEART: Regular rate and rhythm, S1, S2 without murmur, rub or gallop. ABDOMEN: Soft, nontender, nondistended, normoactive bowel sounds, no guarding, no rebound, no hepatosplenomegaly, no masses. EXTREMITIES: 2+ pulses, warm, well-perfused, no edema. NEUROLOGICAL: Cranial nerves II through XII grossly intact. Normal speech, gait not observed. PSYCH: Normal mood, normal affect. SKIN: Warm, dry, normal turgor, no rashes or lesions noted. LABS Laboratory Results - last 24 hr 11/30/18 07:30 Sodium 131 L Potassium 4.1 Chloride 102 Carbon Dioxide 24 Anion Gap 5 L BUN 17 Creatinine 0.7 Creat Clearance w eGFR > 60 Random Glucose 133 H Calcium 7.9 L Magnesium 2.1 Total Bilirubin 0.4 AST 12 ALT 17 Alkaline Phosphatase 62 Total Protein 4.9 L Albumin 2.1 L HOSPITAL COURSE: Date of Admission:11/28/18 Date of Discharge: 12/01/18 Minutes to complete discharge: 35 Discharge Summary Reason For Visit: HEMORRHAGIC DIARRHEA,ABDOMINAL PAIN,ULCERATIVE COL Condition: Improved - Instructions Diet, Activity, Other Instructions: Take 60mg of prednisone daily until you see Dr. Ellis. A prescription has been sent to your pharmacy if you need more pills. Referrals: Joe Ellis MD [Primary Care Provider] - Disposition: HOME - Home Medications Comprehensive Discharge Medication List: Ambulatory Orders Mesalamine [Delzicol] 800 mg PO BID 07/16/15 Lisinopril/Hydrochlorothiazide [Lisinopril-Hctz 10-12.5 mg Tab] 1 each PO DAILY 11/20/17 Prednisone [Deltasone] 20 mg PO DAILY #30 tablet 12/01/18 This patient is new to me today: No Emergency Visit: Yes ED Registration Date: 11/28/18 Care time: The patient presented to the Emergency Department on the above date and was hospitalized for further evaluation of their emergent condition. Critical Care patient: No - Discharge Referral Referred to [facility] Med [facility] No
[2018-12-01] MEDS: LISINOPRIL 10 MG TABLET (FP) PO SCH (09:45)
[2018-12-01] MEDS: HYDROCHLOROTHIAZIDE 12.5 MG CAPSULE (FP) PO SCH (09:45)
[2018-12-01 09:49] VITALS: BP 112/73; PULSE 110
[2018-12-01] MEDS ORDERED: predniSONE 20 MG TABLET (UD) PO SCH (10:00)
== END 2018-12-01 13:21 | disposition home or self-care (01) | DRG 386 ==
LOC: FER 11:39 → FM/S 15:40 → OBSVTOIN 16:09
PROVIDERS: ADMIT Internal Medicine; ATTEND Nurse Practitioner Acute Care
DX: K51.90 Ulcerative colitis, unspecified, without complications (principal); E87.1 Hypo-osmolality and hyponatremia; I10 Essential (primary) hypertension; E78.5 Hyperlipidemia, unspecified; R10.32 Left lower quadrant pain
CPT/HCPCS: 36415; 71045-TC-FY; 74177-TC; 80053; 81003; 83690; 83735; 85025; 85610; 85730; 86850; 86900; 86901; 87040; 87086; 93005; 99283-25; G0378; J0131; J1644; J7030